=== PATIENT | female | born 1975 | race Caucasian/White ===

== ENCOUNTER 2017-09-23 12:00 | Emergency (ER) | payer OTHER ==
--- NOTE | 2017-09-23 12:17 | PDOC ---
History of Present Illness - General Chief Complaint: Constipation Stated Complaint: CONSTIPATION Time Seen by Provider: 09/23/17 12:17 - History of Present Illness Initial Comments: 09/23/17 13:03 Ms Pereira is a 42 yo F with a history of polycystic ovaries, history of facial trauma is status post multiple reconstructive surgeries who presents emergency department with abdominal pain and constipation. Patient states that the week of September 08 began to have an upper respiratory infection. She was seen at an urgent care, started on Azithromycin. She saw her primary care physician because she noted constipation When she completed her antibiotics, patient states she noted intermittent left lower quadrant pain. Patient states she had a change in her bowel movements Patient states she typically regular however she's noted that she's been constipated. She has been taking Senokot. She has also been taking a probiotic. Patient states she intermittently had left lower quadrant pain but it would resolve. Patient presents today because she states that her lower abdominal pain significantly worsened last night. She would describe it as sharp/80, pain is rated 7/10, no radiation. Patient states she has had no diarrhea. She's had 2 bowel movements in total over the last week. No vomiting. Patient states she may have had a low-grade fever-temperature 99.0 (patient states she is usually very cold). Her last meal was at 2:30 PM. She is tolerating foods, but having difficulty tolerating liquids. Past medical history: Polycystic ovaries PSH: multiple reconstructive surgeries Meds: denies ALL: Codeine --> hives Social: denies drugs or cigarettes GENERAL/CONSTITUTIONAL: No: fever, chills, weakness, loss of appetite. HEAD, EYES, EARS, NOSE AND THROAT: No: change in vision, ear pain, discharge, sore throat, throat swelling. CARDIOVASCULAR: No: chest pain, lightheadedness, palpitations, syncope RESPIRATORY: No: cough, shortness of breath, wheezing, hemoptysis, stridor. GASTROINTESTINAL: Yes: abdominal pain, constipation No: nausea, vomiting, diarrhea, GENITOURINARY: No: dysuria, hematuria, frequency, urgency, flank pain. MUSCULOSKELETAL: No: back pain, neck pain, joint pain, muscle swelling or pain SKIN AND BREASTS: No: lesions, pallor, rash or easy bruising. NEUROLOGIC: No: headache, vertigo, paresthesias, weakness ENDOCRINE: No: unexplained weight gain or loss HEMATOLOGIC/LYMPHATIC: No: anemia, easy bleeding, swelling nodes. GENERAL: The patient is in no acute distress. HEAD: Normal with no signs of trauma. EYES: PERRLA, EOMI, sclera anicteric, conjunctiva clear. ENT: Ears normal, nares patent, oropharynx clear without exudates. Moist mucous membranes. NECK: Normal range of motion, supple LUNGS: Breath sounds equal, clear to auscultation bilaterally. No wheezes, and no crackles. HEART:Regular rate and rhythm, normal S1 and S2 without murmur, rub or gallop. ABDOMEN: Soft, focal quadrant tenderness to palpation, no involuntary guarding, no rebound EXTREMITIES: Normal range of motion, no edema. No clubbing or cyanosis. No erythema, or tenderness. NEUROLOGICAL: Cranial nerves II through XII grossly intact. Normal speech. No focal neurological deficits. MUSCULOSKELETAL: Back non-tender to palpation SKIN: Warm, Dry, normal turgor, no rashes or lesions noted. Past History - Past Medical History Allergies/Adverse Reactions: Allergies Allergy/AdvReac Type Severity Reaction Status Date / Time coconut Allergy Intermediate Hives Verified 09/23/17 12:03 codeine Allergy Intermediate Hives Verified 09/23/17 12:03 hylan G-F 20 [From [employer]] Allergy Intermediate Swelling Verified 09/23/17 12: 03 Home Medications: Ambulatory Orders Moxifloxacin HCl [Vigamox 0.5% Eye Drops -] 1 drop OU TID PRN #1 bottle Norgestimate-Ethinyl Estradiol [Ortho Tri-Cyclen Lo Tablet] 1 each PO DAILY Polyethylene Glycol 3350 [Miralax (For Bowel Prep) -] 17 gm PO BID PRN #1 bottle 09/23/17 ED Treatment Course - LABORATORY CBC & Chemistry Diagram: 09/23/17 13:00 09/23/17 13:00 Medical Decision Making - Medical Decision Making 09/23/17 13:12 42-year-old female presented to emergency department with a complaint of left lower quadrant pain and constipation. No systemic signs of illness currently however patient had a prior low grade temperature. Patient's examination is concerning for possible: Diverticulitis, colitis, SBO, Ovarian cyst, Will do: Labs, CT IV pain medications IV fluids Will re assess Laboratory Tests 09/23/17 09/23/17 09/23/17 13:00 13:00 13:22 WBC 8.6 Hgb 14.6 Hct 41.7 Plt Count 335 Sodium 133 L Potassium 4.4 Chloride 102 Carbon Dioxide 25 BUN 15 Creatinine 0.9 Random Glucose 119 H Stool Occult Blood Negative Pt signed out to Dr Carolina pending CT *DC/Admit/Observation/Transfer Diagnosis at time of Disposition: Abdominal pain, Constipation - Discharge Dispostion Disposition: HOME Condition at time of disposition: Good - Prescriptions Prescriptions: Moxifloxacin HCl [Vigamox 0.5% Eye Drops -] 1 drop OU TID PRN #1 bottle PRN Reason: pink eye Polyethylene Glycol 3350 [Miralax (For Bowel Prep) -] 17 gm PO BID PRN #1 bottle PRN Reason: Constipation - Referrals Referrals: Maxi Almazan MD [Staff Physician] - 2 Days - Patient Instructions Printed Discharge Instructions: DI for Constipation Additional Instructions: You were evaluated today for constipation and lower abdominal discomfort. The CT scan shows diverticulosis, but no diverticulitis meaning there is no infection of the colon. You're advised to take MiraLAX once or twice a day to relieve the constipation. Eat a diet high in fiber. Take Tylenol if needed for abdominal pain. You are advised to call Dr. Maxi Almazan, voice writing reporter, on Monday to schedule a follow-up appointment for colonoscopy and reevaluation. You were also prescribed Vigamox eyedrops for pinkeye. Return to the emergency department for any severe or progressive symptoms. Otherwise follow-up with Dr. Almazan and your primary physician. - Post Discharge Activity
[2017-09-23 12:25] VITALS: BP 97/59; PULSE 94; TEMP 98; BMI 29.7
[2017-09-23] MEDS ORDERED: SODIUM CHLORIDE 1,000 ML IV STA (12:37)
[2017-09-23 13:18] LABS: BASO % 0.9 % (0-2.0); EOS % 0.8 % (0-4.5); HEMATOCRIT 41.7 % (32.4-45.2); HEMOGLOBIN 14.6 GM/dl (10.7-15.3); LYMPH % 16.1 % (8-40); MCH 32.7 pg (25.7-33.7); MEAN CELL VOLUME 93.5 fl (80-96); MEAN PLT VOLUME 7.6 fl (7.5-11.1); MONO % 4.6 % (3.8-10.2); NEUT % 77.6 % (42.8-82.8); PLATELET COUNT 335 K/MM3 (134-434); RBC 4.46 M/mm3 (3.60-5.2); RDW 11.5 % (11.6-15.6); WHITE BLOOD COUNT 8.6 K/mm3 (4.0-10.8)
[2017-09-23 13:35] LABS: ALBUMIN 3.9 g/dl (3.5-5.0); ALK PHOS 49 U/L (32-92); ANION GAP 6 (8-16); BILIRUBIN,TOTAL 0.8 mg/dl (0.2-1.0); BLOOD UREA NITROGEN 15 mg/dl (7-18); CALCIUM 8.9 mg/dl (8.4-10.2); CHLORIDE 102 mmol/L (98-107); CO2 25 mmol/L (22-28); CREATININE 0.9 mg/dl (0.6-1.3); GLUCOSE,RANDOM 119 mg/dl (74-106); POTASSIUM 4.4 mmol/L (3.5-5.1); SGOT/AST 20 U/L (10-42); SGPT/ALT 15 U/L (10-40); SODIUM 133 mmol/L (136-145); TOT PROT 6.8 g/dl (6.4-8.3)
[2017-09-23] MEDS ORDERED: HYDROmorphone HCL CARPU-JECT 1 MG/1 ML DISP.SYRIN IVPB ONE (14:01)
[2017-09-23] MEDS ORDERED: HYDROmorphone HCL CARPU-JECT 1 MG/1 ML DISP.SYRIN ONE (14:04)
--- NOTE | 2017-09-23 15:59 | PDOC ---
*Physical Exam - Vital Signs Last Vital Signs Temp Pulse Resp BP Pulse Ox 98.0 F 94 H 16 97/59 95 09/23/17 12:02 09/23/17 12:02 09/23/17 12:02 09/23/17 12:02 09/23/17 12:02 ED Treatment Course - LABORATORY CBC & Chemistry Diagram: 09/23/17 13:00 09/23/17 13:00 - ADDITIONAL ORDERS Additional order review: Laboratory Results 09/23/17 09/23/17 09/23/17 13:22 13:00 13:00 Sodium 133 L Potassium 4.4 Chloride 102 Carbon Dioxide 25 Anion Gap 6 L BUN 15 Creatinine 0.9 Creat Clearance w eGFR > 60 Random Glucose 119 H Calcium 8.9 Total Bilirubin 0.8 AST 20 ALT 15 Alkaline Phosphatase 49 Total Protein 6.8 Albumin 3.9 Serum , Qual Negative Stool Occult Blood Negative 09/23/17 13:00 RBC 4.46 MCV 93.5 MCHC 35.0 RDW 11.5 L MPV 7.6 Neutrophils % 77.6 Lymphocytes % 16.1 Monocytes % 4.6 Eosinophils % 0.8 Basophils % 0.9 - Medications Given in the ED: ED Medications Discontinued Medications Generic Name Dose Route Start Last Admin Trade Name Freq PRN Reason Stop Dose Admin Hydromorphone HCl 0.5 mg 09/23/17 14:01 09/23/17 14:10 Dilaudid Injection - IVPB 09/23/17 14:02 0.5 mg NOW ONE Administration Sodium Chloride 1,000 mls @ 1,000 mls/hr 09/23/17 12:37 09/23/17 13:10 Normal Saline - IV 09/23/17 13:36 1,000 mls/hr ASDIR STA Administration Medical Decision Making - Medical Decision Making 09/23/17 15:52 Patient presented today for decreased stool output and intermittent constipation with some lower abdominal discomfort. Workup has been completed. Her white blood cell count is 8. There is no fever. She has mild discomfort on palpation of her lower abdomen. There is no guarding or rebound tenderness. CT scan of the abdomen and pelvis shows diverticulosis, but no signs of diverticulitis. The CT scan was performed with IV contrast. Impression: Constipation, workup unremarkable. Patient was prescribed MiraLAX for her constipation. She also has mild pinkeye and was given Ocuflox prescription. Patient will be referred to GI for colonoscopy. She stated she understands the importance of GI follow-up and colonoscopy to complete her workup and she assures me that she will follow through. Laboratory Results - last 24 hr 09/23/17 09/23/17 09/23/17 13:00 13:00 13:00 WBC 8.6 RBC 4.46 Hgb 14.6 Hct 41.7 MCV 93.5 MCH 32.7 MCHC 35.0 RDW 11.5 L Plt Count 335 MPV 7.6 Neutrophils % 77.6 Lymphocytes % 16.1 Monocytes % 4.6 Eosinophils % 0.8 Basophils % 0.9 Sodium 133 L Potassium 4.4 Chloride 102 Carbon Dioxide 25 Anion Gap 6 L BUN 15 Creatinine 0.9 Creat Clearance w eGFR > 60 Random Glucose 119 H Calcium 8.9 Total Bilirubin 0.8 AST 20 ALT 15 Alkaline Phosphatase 49 Total Protein 6.8 Albumin 3.9 Serum , Qual Negative Stool Occult Blood 09/23/17 13:22 WBC RBC Hgb Hct MCV MCH MCHC RDW Plt Count MPV Neutrophils % Lymphocytes % Monocytes % Eosinophils % Basophils % Sodium Potassium Chloride Carbon Dioxide Anion Gap BUN Creatinine Creat Clearance w eGFR Random Glucose Calcium Total Bilirubin AST ALT Alkaline Phosphatase Total Protein Albumin Serum , Qual Stool Occult Blood Negative *DC/Admit/Observation/Transfer Diagnosis at time of Disposition: Abdominal pain Qualifiers: Abdominal location: left lower quadrant Qualified Code(s): R10.32 - Left lower quadrant pain Constipation Qualifiers: Constipation type: unspecified constipation type Qualified Code(s): K59.00 - Constipation, unspecified - Discharge Dispostion Disposition: HOME Condition at time of disposition: Good Admit: No - Prescriptions Prescriptions: Moxifloxacin HCl [Vigamox 0.5% Eye Drops -] 1 drop OU TID PRN #1 bottle PRN Reason: pink eye Polyethylene Glycol 3350 [Miralax (For Bowel Prep) -] 17 gm PO BID PRN #1 bottle PRN Reason: Constipation - Referrals Referrals: Maxi Almazan MD [Staff Physician] - 2 Days - Patient Instructions Printed Discharge Instructions: DI for Constipation Additional Instructions: You were evaluated today for constipation and lower abdominal discomfort. The CT scan shows diverticulosis, but no diverticulitis meaning there is no infection of the colon. You're advised to take MiraLAX once or twice a day to relieve the constipation. Eat a diet high in fiber. Take Tylenol if needed for abdominal pain. You are advised to call Dr. Maxi Almazan, dip painter, on Monday to schedule a follow-up appointment for colonoscopy and reevaluation. You were also prescribed Vigamox eyedrops for pinkeye. Return to the emergency department for any severe or progressive symptoms. Otherwise follow-up with Dr. Almazan and your primary physician. - Post Discharge Activity
== END 2017-09-23 16:13 | disposition home or self-care (01) ==
LOC: FER 12:00
PROC: 3E033NZ Introduction of Analgesics, Hypnotics, Sedatives into Peripheral Vein, Percutaneous Approach (ICD-10-PCS; principal; 2017-09-23)
PROC: 3E0337Z Introduction of Electrolytic and Water Balance Substance into Peripheral Vein, Percutaneous Approach (ICD-10-PCS; 2017-09-23)
DX: K59.00 Constipation, unspecified (principal); R10.9 Unspecified abdominal pain
CPT/HCPCS: 36415; 74177-TC; 80053; 82272; 84703; 85025; 87040; 99283-25

== ENCOUNTER 2017-10-20 08:21 | Day surgery (SDC) | payer OTHER ==
[2017-10-20] MEDS ORDERED: LIDOCAINE HCL 2% (20ML MULTI-DOSE VIAL) NR ONE (08:40)
[2017-10-20] MEDS ORDERED: PROPOFOL 20 ML ONE ×4 (08:40→10:39)
[2017-10-20 09:24] VITALS: BMI 28.7
--- NOTE | 2017-10-20 10:53 | PROC ---
Endoscopy Procedure Endoscopy procedure completed. Please see scanned procedure report.
[2017-10-20 12:12] VITALS: BP 111/73; PULSE 60; TEMP 98.2
--- NOTE | 2017-10-23 10:48 | PATH ---
Surgical Pathology Report Patient Name: MARY KATE [facility]. Rec. #: [id number] /Age/Gender: 1975 (Age: 42) / F Account: [id number] Location: [facility]-ENDOSCOPY Taken: 10/20/2017 Received: 10/20/2017 Reported: 10/23/2017 Physicians: Maxi Almazan M.D. Specimen(s) Received A: BX TERMINAL ILEUM B: BX ASCENDING COLON C: BX DESCENDING COLON Clinical History Preoperative diagnosis: Screening Postoperative diagnosis: Tortuous normal colon?? Final Diagnosis A. TERMINAL ILEUM, BIOPSY: SMALL INTESTINAL MUCOSA WITH FOLLICULAR HYPERPLASIA OF MUCOSA ASSOCIATED LYMPHOID TISSUE. NO ACTIVE COLITIS, ARCHITECTURAL DISTORTION, GRANULOMATA, OR DYSPLASIA IDENTIFIED. NO MICROSCOPIC COLITIS IDENTIFIED (NO LYMPHOCYTIC OR COLLAGENOUS COLITIS IDENTIFIED). B. COLON, ASCENDING, BIOPSY: COLONIC MUCOSA WITH NO PATHOLOGIC CHANGES. NO ACTIVE COLITIS, ARCHITECTURAL DISTORTION, GRANULOMATA, OR DYSPLASIA IDENTIFIED. NO MICROSCOPIC COLITIS IDENTIFIED (NO LYMPHOCYTIC OR COLLAGENOUS COLITIS IDENTIFIED). C. COLON, DESCENDING, BIOPSY: COLONIC MUCOSA WITH NO PATHOLOGIC CHANGES. NO ACTIVE COLITIS, ARCHITECTURAL DISTORTION, GRANULOMATA, OR DYSPLASIA IDENTIFIED. NO MICROSCOPIC COLITIS IDENTIFIED (NO LYMPHOCYTIC OR COLLAGENOUS COLITIS IDENTIFIED). Comment: The findings in Specimen A may indicate some form of antigenic stimulation to the GI tract. Electronically Signed Warren Cobos M.D. Gross Description A. Received in formalin, labeled "biopsy terminal ileum" are 2 landrum, irregular portions of soft tissue measuring 0.3 and 0.4 cm. in greatest dimension. The specimens are submitted in toto in one cassette. B. Received in formalin, labeled "biopsy ascending colon" are 2 landrum, irregular portions of soft tissue averaging 0.3 cm. in greatest dimension. The specimens are submitted in toto in one cassette. C. Received in formalin, labeled "biopsy descending colon" are 2 landrum, irregular portions of soft tissue measuring 0.3 and 0.4 cm. in greatest dimension. The specimens are submitted in toto in one cassette. 10/20/201710/20/2017
== END 2017-10-20 12:05 | disposition home or self-care (01) ==
LOC: JASU-ENDO 08:21
PROVIDERS: ATTEND Internal Medicine Gastroenterology
PROC: 0DJD8ZZ Inspection of Lower Intestinal Tract, Via Natural or Artificial Opening Endoscopic (ICD-10-PCS; principal; 2017-10-20 09:00)
DX: R19.4 Change in bowel habit (principal); K63.89 Other specified diseases of intestine
CPT/HCPCS: 36415; 84703; 88305-TC

== ENCOUNTER 2017-11-04 17:09 | Emergency (ER) | payer OTHER ==
[2017-11-04 17:35] VITALS: BP 116/76; PULSE 99; TEMP 101.9; BMI 28.6
[2017-11-04] MEDS ORDERED: ACETAMINOPHEN 325 MG TABLET (FP) ONE (17:48)
[2017-11-04] MEDS ORDERED: ACETAMINOPHEN 325 MG TABLET (FP) PO ONE ×2 (17:52)
--- NOTE | 2017-11-04 17:52 | PDOC ---
History of Present Illness - General History Source: Patient, Family Exam Limitations: No Limitations - History of Present Illness Initial Comments: 11/04/17 18:16 The patient is a 42 year old female, accompanied by mother, with a significant past medical history of polycystic ovaries, history of facial trauma s/p multiple reconstructive surgeries, who presents to the emergency department with , measured fever, non productive cough, generalized body aches and fatigue for approx. one week. The patient states that last Monday she began to feel more fatigued than usual and noticed she had a sore throat. The patient states over the past week she has had measured fevers of 101.7 F, chills, body aches, non productive cough and mild congestion. The patient states she has been taking Tylenol for the fevers with minimal relief. The patient states she last took Motrin this afternoon approx. 6 hours ago. She denies recent headache or dizziness. She denies recent nausea, vomit, diarrhea or constipation. She denies recent dysuria, frequency, urgency or hematuria. She denies recent chest pain or shortness of breath. Allergies: coconut, codeine, hylan G-F 20 Past surgical history: multiple reconstructive surgeries Primary Care Physician: Dr. Karson Barth <Tristan Bernal - Last Filed: 11/04/17 18:16> <Patricia Garcia - Last Filed: 11/04/17 18:23> - General Chief Complaint: Cold Symptoms Stated Complaint: FLU Time Seen by Provider: 11/04/17 17:52 Past History <Tristan Bernal - Last Filed: 11/04/17 18:16> - Past Medical History COPD: No GI Disorders: Yes (DIVERTICULOSIS) Disorders: Yes (POLYCYSTIC OVARIAN DISEASE) Other medical history: PCOS,ARTHRITIS,MIGRAINE - Surgical History Abdominal Surgery: (colonoscopy on 10/20/17) Orthopedic Surgery: Yes (LEFT WRIST SURGERY,BILATERAL KNEE SURGERY) - Suicide/Smoking/Psychosocial Hx Smoking History: Never smoked Hx Alcohol Use: No Drug/Substance Use Hx: No Substance Use Type: None Hx Substance Use Treatment: No <Patricia Garcia - Last Filed: 11/04/17 18:23> - Past Medical History Allergies/Adverse Reactions: Allergies Allergy/AdvReac Type Severity Reaction Status Date / Time coconut Allergy Intermediate Hives Verified 11/04/17 17:30 codeine Allergy Intermediate Hives Verified 11/04/17 17:30 hylan G-F 20 [From [employer]] Allergy Intermediate Swelling Verified 11/04/17 17: 30 Home Medications: Ambulatory Orders Norgestimate-Ethinyl Estradiol [Ortho Tri-Cyclen Lo Tablet] 1 each PO DAILY Ondansetron [Zofran Odt -] 4 mg SL TID PRN #21 od.tablet 11/04/17 Oseltamivir Phosphate [Tamiflu -] 75 mg PO BID #10 capsule 11/04/17 Review of Systems - Review of Systems Comments:: 11/04/17 18:17 GENERAL/CONSTITUTIONAL: +Fever. +Chills. +Fatigue. No weakness. HEAD, EYES, EARS, NOSE AND THROAT: +Sore throat. +Congestion. No change in vision. No ear pain or discharge. CARDIOVASCULAR: No chest pain or shortness of breath. RESPIRATORY: +Non productive cough. No wheezing, or hemoptysis. GASTROINTESTINAL: No nausea, vomiting, diarrhea or constipation. GENITOURINARY: No dysuria, frequency, or change in urination. MUSCULOSKELETAL: +Generalized body aches. No neck or back pain. SKIN: No rash NEUROLOGIC: No headache, vertigo, loss of consciousness, or change in strength/ sensation. ENDOCRINE: No increased thirst. No abnormal weight change. HEMATOLOGIC/LYMPHATIC: No anemia, easy bleeding, or history of blood clots. ALLERGIC/IMMUNOLOGIC: No hives or skin allergy. <Tristan Bernal - Last Filed: 11/04/17 18:16> *Physical Exam - Vital Signs Last Vital Signs Temp Pulse Resp BP Pulse Ox 101.9 F H 99 H 18 116/76 97 11/04/17 17:11 11/04/17 17:11 11/04/17 17:11 11/04/17 17:11 11/04/17 17:11 <Tristan Bernal - Last Filed: 11/04/17 18:16> - Vital Signs Last Vital Signs Temp Pulse Resp BP Pulse Ox 101.9 F H 99 H 18 116/76 97 11/04/17 17:11 11/04/17 17:11 11/04/17 17:11 11/04/17 17:11 11/04/17 17:11 - Physical Exam Comments: GENERAL: Awake, alert, and fully oriented, in no acute distress. +Tactile fever. HEAD: No signs of trauma EYES: PERRLA, EOMI, sclera anicteric, conjunctiva clear ENT: Auricles normal inspection, hearing grossly normal, nares patent, oropharynx clear without exudates. Moist mucosa. +Narrow EACs (chronic per patient), TMs partially visualized B/L, nonerythematous. +Purulent nasal drainage. NECK: Normal ROM, supple, no lymphadenopathy, JVD, or masses LUNGS: Breath sounds equal, clear to auscultation bilaterally. No wheezes, and no crackles HEART: Regular rate and rhythm, normal S1 and S2, no murmurs, rubs or gallops ABDOMEN: Soft, nontender, normoactive bowel sounds. No guarding, no rebound. No masses EXTREMITIES: Normal range of motion, no edema. No clubbing or cyanosis. No cords, erythema, or tenderness NEUROLOGICAL: Cranial nerves II through XII grossly intact. Normal speech, normal gait SKIN: Warm, Dry, normal turgor, no rashes or lesions noted. <Patricia Garcia - Last Filed: 11/04/17 18:23> ED Treatment Course - ADDITIONAL ORDERS Additional order review: Laboratory Results 11/04/17 17:40 Urine HCG, Qual Negative - Medications Given in the ED: ED Medications Discontinued Medications Generic Name Dose Route Start Last Admin Trade Name Parthq PRN Reason Stop Dose Admin Acetaminophen 975 mg 11/04/17 17:52 11/04/17 17:54 Tylenol - PO 11/04/17 17:53 Not Given ONCE ONE Acetaminophen 975 mg 11/04/17 17:52 11/04/17 17:53 Tylenol - PO 11/04/17 17:53 975 mg NOW ONE Administration <Tristan Bernal - Last Filed: 11/04/17 18:16> Medical Decision Making - Medical Decision Making 11/04/17 18:22 Pt counseled to take motrin or tylenol for fever, may alternate every 3 hours if fever is returning too quickly. Tamiflu prescribed, zofran in case she develops nausea from the tamiflu. Encouraged her to drink plenty of fluids. 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 Also counseled family to wear masks to prevent spread. <Patricia Garcia - Last Filed: 11/04/17 18:23> *DC/Admit/Observation/Transfer - Attestations Scribe Attestion: 11/04/17 18:17 Documentation prepared by Tristan Bernal, acting as biomedical engineering supervisor for Patricia Garcia MD. <Tristan Bernal - Last Filed: 11/04/17 18:16> - Discharge Dispostion Admit: No <Patricia Garcia - Last Filed: 11/04/17 18:23> Diagnosis at time of Disposition: Influenza - Discharge Dispostion Disposition: HOME Condition at time of disposition: Stable - Prescriptions Prescriptions: Ondansetron [Zofran Odt -] 4 mg SL TID PRN #21 od.tablet PRN Reason: Nausea And/Or Vomiting Oseltamivir Phosphate [Tamiflu -] 75 mg PO BID #10 capsule - Referrals Referrals: Karson Barth MD [Primary Care Provider] - - Patient Instructions Printed Discharge Instructions: DI for Influenza -- Adult Additional Instructions: If you take Nyquil, just be aware of how much tylenol you are taking. You can take a maximum of 1000mg of tylenol every 6 hours (extra strength tylenol is 500 mg each tab, regular strength is 325 mg each tab), so when you take nyquil, you need to decrease tylenol accordingly. - Post Discharge Activity Forms/Work/School Notes: Back to Work
== END 2017-11-04 18:23 | disposition home or self-care (01) ==
LOC: FER 17:09
DX: J11.1 Influenza due to unidentified influenza virus with other respiratory manifestations (principal); E28.2 Polycystic ovarian syndrome
CPT/HCPCS: 84703; 99282-25

== ENCOUNTER 2017-12-31 17:33 | Emergency (ER) | payer OTHER ==
--- NOTE | 2017-12-31 17:46 | PDOC ---
History of Present Illness - General History Source: Patient Exam Limitations: No Limitations - History of Present Illness Initial Comments: 12/31/17 17:56 The patient is a 42 year old female with past medical history of PCOS and bilateral knee surgery who presents to the ED with worsening right foot pain and swelling. The patient states the pain began a few months ago when she fell at [employer] and injured the dorsum of her foot. The pain became worse two days ago when someone stepped on that foot and since then she has been experiencing throbbing pain and swelling to her right foot. The patient is able to bare weight but reports difficulty ambulating. She denies any associated numbness or tingling. Denies any other injury. Denies any fevers/chills. <Margaret Salazar - Last Filed: 12/31/17 17:56> <Dariana Altamirano - Last Filed: 12/31/17 18:27> - General Chief Complaint: Pain Stated Complaint: PAIN RIGHT FOOT Time Seen by Provider: 12/31/17 17:45 Past History <Margaret Salazar - Last Filed: 12/31/17 17:56> - Past Medical History COPD: No GI Disorders: Yes (DIVERTICULOSIS) Disorders: Yes (POLYCYSTIC OVARIAN DISEASE) - Surgical History Abdominal Surgery: (colonoscopy on 10/20/17) Orthopedic Surgery: Yes (LEFT WRIST SURGERY,BILATERAL KNEE SURGERY) - Suicide/Smoking/Psychosocial Hx Smoking History: Never smoked Hx Alcohol Use: No Drug/Substance Use Hx: No Substance Use Type: None Hx Substance Use Treatment: No <Dariana Altamirano - Last Filed: 12/31/17 18:27> - Past Medical History Allergies/Adverse Reactions: Allergies Allergy/AdvReac Type Severity Reaction Status Date / Time coconut Allergy Intermediate Hives Verified 11/04/17 17:30 codeine Allergy Intermediate Hives Verified 11/04/17 17:30 hylan G-F 20 [From Synvisc] Allergy Intermediate Swelling Verified 11/04/17 17: 30 Home Medications: Ambulatory Orders NK [No Known Home Medication] 12/31/17 Review of Systems - Review of Systems Able to Perform ROS?: Yes Comments:: 12/31/17 17:56 GENERAL/CONSTITUTIONAL: No fever or chills. No weakness. HEAD, EYES, EARS, NOSE AND THROAT: No change in vision. No ear pain or discharge. No sore throat. CARDIOVASCULAR: No chest pain or shortness of breath. RESPIRATORY: No cough, wheezing, or hemoptysis. GASTROINTESTINAL: No nausea, vomiting, diarrhea or constipation. GENITOURINARY: No dysuria, frequency, or change in urination. MUSCULOSKELETAL: (+) right foot pain/swelling. No neck or back pain. SKIN: No rash NEUROLOGIC: No headache, vertigo, loss of consciousness, or change in strength/ sensation. ENDOCRINE: No increased thirst. No abnormal weight change. HEMATOLOGIC/LYMPHATIC: No anemia, easy bleeding, or history of blood clots. ALLERGIC/IMMUNOLOGIC: No hives or skin allergy. All Other Systems: Reviewed and Negative <Margaret Salazar - Last Filed: 12/31/17 17:56> *Physical Exam - Vital Signs Last Vital Signs Temp Pulse Resp BP Pulse Ox 98.3 F 90 16 136/77 100 12/31/17 17:35 12/31/17 17:35 12/31/17 17:35 12/31/17 17:35 12/31/17 17:35 - Physical Exam Comments: 12/31/17 17:57 GENERAL: Awake, alert, and fully oriented, in no acute distress HEAD: No signs of trauma EYES: PERRLA, EOMI, sclera anicteric, conjunctiva clear ENT: Auricles normal inspection, hearing grossly normal, nares patent, oropharynx clear without exudates. Moist mucosa NECK: Normal ROM, supple, no lymphadenopathy, JVD, or masses LUNGS: Breath sounds equal, clear to auscultation bilaterally. No wheezes, and no crackles HEART: Regular rate and rhythm, normal S1 and S2, no murmurs, rubs or gallops ABDOMEN: Soft, nontender, normoactive bowel sounds. No guarding, no rebound. No masses EXTREMITIES: (+) pain and mild swelling to the dorsum of the right foot. No ecchymosis, neurovascularly intact, full ROM. NEUROLOGICAL: Cranial nerves II through XII grossly intact. Normal speech, normal gait SKIN: Warm, Dry, normal turgor, no rashes or lesions noted. <Margaret Salazar - Last Filed: 12/31/17 17:56> Medical Decision Making - Medical Decision Making 12/31/17 18:23 pt presents to the ED complaining of pain to the dorsum of her foot after stepped on. Patient has had several episodes of foot swelling after an injury three weeks ago. Xrays read by me are negative for fracture. Will discharge home with antoni wrap and instructions to use motrin for pain and referal to podiatry. <Dariana Altamirano - Last Filed: 12/31/17 18:27> *DC/Admit/Observation/Transfer - Attestations Scribe Attestion: 12/31/17 17:58 Documentation prepared by Margaret Salazar, acting as medical csr for Dariana Altamirano MD. <Margaret Salazar - Last Filed: 12/31/17 17:56> - Discharge Dispostion Decision to Admit order: No <Dariana Altamirano - Last Filed: 12/31/17 18:27> Diagnosis at time of Disposition: Right foot strain Qualifiers: Encounter type: initial encounter Qualified Code(s): S96.911A - Strain of unspecified muscle and tendon at ankle and foot level, right foot, initial encounter - Discharge Dispostion Disposition: HOME Condition at time of disposition: Good - Referrals Referrals: Ayush Downs MD [Staff Physician] - - Patient Instructions Printed Discharge Instructions: DI for Foot Sprain Additional Instructions: return to the ED for severe pain or swelling, cold numb blue swollen foot. Try to minimize the time that you spend on your feet for the next week. Keep the foot elevated and use ice to help with the swelling. Call podiatry for follow up next week.
[2017-12-31 17:49] VITALS: BP 136/77; PULSE 90; TEMP 98.3; BMI 27.6
--- NOTE | 2018-01-01 07:51 | PDOC ---
Patient Follow-up (Call Back) - Post ED Follow - Up Condition at time of discharge: Good Disposition at time of original discharge: HOME - Disposition Additional Instructions/Notes: Received a call from radiologist that pt may have distal fibular avulsion fracture. Called patient, states she is doing well, has been wearing the antoni bandage with some high tennis shoes which has been helping. Informed her of the possible fracture, she states she is having pain more so over the dorsum of the foot, not as much by her outer ankle bone. 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 Recommended the ED for rpt XR any time if she has any difficulty making follow up appt, or if pain/swelling persist or get worse.
== END 2017-12-31 18:31 | disposition home or self-care (01) ==
LOC: FER 17:33
DX: S96.911A Strain of unspecified muscle and tendon at ankle and foot level, right foot, initial encounter (principal); X58.XXXA Exposure to other specified factors, initial encounter; Y93.89 Activity, other specified; Y92.9 Unspecified place or not applicable
CPT/HCPCS: 73610-TC-RT-FY; 73630-TC-RT-FY; 99282-25

== ENCOUNTER 2018-12-16 05:22 | Emergency (ER) | payer OTHER ==
[2018-12-16 05:26] VITALS: BP 112/73; PULSE 93; TEMP 98.3; BMI 29.8
[2018-12-16] MEDS ORDERED: ALBUTEROL SO4 2.5/IPRATROPIUM 0.5 INH SOL 3 ML VIAL.NEB. NEB ONE ×2 (05:39→05:40)
[2018-12-16] MEDS ORDERED: predniSONE 20 MG TABLET (UD) PO ONE (05:39)
--- NOTE | 2018-12-16 05:39 | PDOC ---
History of Present Illness - General Chief Complaint: Sore Throat Stated Complaint: sore throat,cough Time Seen by Provider: 12/16/18 05:24 History Source: Patient Exam Limitations: No Limitations - History of Present Illness Initial Comments: 12/16/18 05:42 This is a 43-year-old female who comes in complaining of cough and congestion and shortness of breath. Patient has history of seasonal ALLERGIES and left her inhaler at work [employer]. So has not had it times almost 2 days. Patient comes in complaining of cough, sore throat and denies any history of headache, fevers, chest pain. Patient cough is nonproductive. Allergies: as per nursing notes Past Medical History: none Social history: Lives with family. No smoking. No alcohol. No illicit drugs. Surgical history: None General: No fevers or chills, no weakness, no weight loss HEENT: No change in vision. + sore throat,. No ear pain CardioVascular: no chest discomfort. No shortness of breath Respiratory:+ cough, or wheezing. Gastrointestinal: no nausea, vomiting, diarrhea or constipation, No rectal bleeding Genitourinary: No dysuria, hematuria, or frequency Musculoskeletal: No joint or muscle pain or swelling Neurologic: No headache, vertigo, dizziness or loss of consciousness Psychiatric: nor depression Skin: No rashes or easy bruising Endocrine: no increased thirst or abnormal weight change Allergic: no skin or latex allergy All other systems reviewed and normal Exam: General: Well-nourished well-developed individual, no acute distress HEENT: Throat: Normal, tonsils normal, moderate amount of erythema posterior oropharynx, tonsils are otherwise normal and there is no exudate. Neck: Supple, no meningeal signs, no lymphadenopathy Eyes::Pupils equal reactive and round, extraocular motion intact Chest: Nontender to palpation Cardiac: S1-S2 normal, regular rate and rhythm, no murmurs rubs or gallops Respiratory: Lungs few x-ray wheezes throughout all lung taylor otherwise clear Abdomen: Soft, nondistended, normal bowel sounds, there is no tenderness on palpation diffusely Extremities: Warm, dry, no cyanosis, clubbing, or edema Skin: No rashes Neuro: Alert and oriented x3, CN II - XII intact, nonfocal exam with normal strength, normal sensation, normal reflexes, normal gait, Psych: Normal mood and affect Assessment and plan: This is a 43-year-old female with seasonal ALLERGIES who left her inhaler at work. Patient given DuoNeb in the emergency room as well as started on some prednisone. Patient sent home with prescription for prednisone and another inhaler. Past History - Past Medical History Allergies/Adverse Reactions: Allergies Allergy/AdvReac Type Severity Reaction Status Date / Time coconut Allergy Intermediate Hives Verified 12/16/18 05:23 codeine Allergy Intermediate Hives Verified 12/16/18 05:23 hylan G-F 20 [From [employer]iquisys] Allergy Intermediate Swelling Verified 12/16/18 05: 23 Home Medications: Ambulatory Orders Albuterol Sulfate Inhaler - [Ventolin HFA Inhaler -] 1 - 2 inh PO Q4H #1 inhaler 12/16/18 Prednisone [Deltasone] 40 mg PO DAILY #8 tablet 12/16/18 COPD: No GI Disorders: Yes (DIVERTICULOSIS) Disorders: Yes (POLYCYSTIC OVARIAN DISEASE) - Surgical History Abdominal Surgery: (colonoscopy on 10/20/17) Orthopedic Surgery: Yes (LEFT WRIST SURGERY,BILATERAL KNEE SURGERY) - Suicide/Smoking/Psychosocial Hx Smoking History: Current some day smoker Have you smoked in the past 12 months: Yes Information on smoking cessation initiated: Yes Hx Alcohol Use: Yes (ocasional) Drug/Substance Use Hx: No Substance Use Type: None Hx Substance Use Treatment: No *Physical Exam - Vital Signs Last Vital Signs Temp Pulse Resp BP Pulse Ox 98.3 F 93 H 16 112/73 97 12/16/18 05:23 12/16/18 05:23 12/16/18 05:23 12/16/18 05:23 12/16/18 05:23 *DC/Admit/Observation/Transfer Diagnosis at time of Disposition: Seasonal allergies - Discharge Dispostion Disposition: HOME Condition at time of disposition: Stable Decision to Admit order: No - Prescriptions Prescriptions: Albuterol Sulfate Inhaler - [Ventolin HFA Inhaler -] 1 - 2 inh PO Q4H #1 inhaler Prednisone [Deltasone] 40 mg PO DAILY #8 tablet - Referrals - Patient Instructions Additional Instructions: Take prednisone 40 mg a day for the next 4 days. I sent a prescription to your pharmacy for the prednisone. Use your inhaler 2 puffs as often as every 4-6 hours if needed. Return to the emergency department immediately with ANY new, persistent or worsening symptoms. Continue any medications as previously prescribed by your physician. You should follow up with your primary doctor as soon as possible regarding today's emergency department visit. . Please make sure your doctor reviews the results of your emergency evaluation. Thank you for coming to the Emergency Department today for your care. It was a pleasure to see you today. Please note that your evaluation is INCOMPLETE until you follow-up with your doctor. - Post Discharge Activity
[2018-12-16] MEDS ORDERED: predniSONE 20 MG TABLET (UD) ONE (05:40)
== END 2018-12-16 06:09 | disposition home or self-care (01) ==
LOC: FER 05:22
PROC: 3E0F7GC Introduction of Other Therapeutic Substance into Respiratory Tract, Via Natural or Artificial Opening (ICD-10-PCS; principal; 2018-12-16)
DX: J30.2 Other seasonal allergic rhinitis (principal); F17.210 Nicotine dependence, cigarettes, uncomplicated; K57.90 Diverticulosis of intestine, part unspecified, without perforation or abscess without bleeding; E28.2 Polycystic ovarian syndrome
CPT/HCPCS: 99282-25

== ENCOUNTER 2020-03-24 10:44 | Emergency (ER) | payer BC, OTHER ==
[2020-03-24 11:00] VITALS: BP 124/86; PULSE 102; TEMP 98.1; BMI 29.8
[2020-03-24] MEDS ORDERED: KETOROLAC TROMETHAMINE 30 MG/1 ML VIAL IM ONE (11:12)
[2020-03-24] MEDS ORDERED: KETOROLAC TROMETHAMINE 30 MG/1 ML VIAL ONE (11:14)
--- NOTE | 2020-03-24 11:19 | PDOC ---
History of Present Illness - General Chief Complaint: Pain, Acute Stated Complaint: RIGHT FOOT PAIN Time Seen by Provider: 03/24/20 10:47 History Source: Patient Exam Limitations: No Limitations - History of Present Illness Initial Comments: 03/24/20 11:14 45y F hx of PCOS, arthritis, presents with atraumatic R foot pain. The Patient endorses chronic right foot pain that is usually tolerable however this morning she woke up with severe right foot pain, noting it is very difficult for her to ambulate due to the pain. She states that she had not done anything out of the ordinary the last couple of days she did go on vacation to [place] last week and was on her feet a lot however her pain was manageable until yesterday. The patient denies any trauma, new exercises, focal numbness, tingling, weakness. Patient notes that the pain is worse on the dorsum of her right foot and there is no radiation of the pain to the ankle or legs. She has seen orthopedics in the past and had x-rays and was diagnosed with arthritis she has had cortisone shots in the past with relief. Patient denies any fever, chills. Patient takes diclofenac orally and topically for her arthritis pains however has not taken anything today. Past History - Medical History Allergies/Adverse Reactions: Allergies Allergy/AdvReac Type Severity Reaction Status Date / Time coconut Allergy Intermediate Hives Verified 03/24/20 10:46 codeine Allergy Intermediate Hives Verified 03/24/20 10:46 hylan G-F 20 [From [employer]] Allergy Intermediate Swelling Verified 03/24/20 10:46 Home Medications: Ambulatory Orders Diclofenac Sodium 1 applic TP ASDIR PRN 03/24/20 Sertraline HCl [Zoloft] 100 mg PO DAILY PRN 03/24/20 COPD: No GI Disorders: Yes (DIVERTICULOSIS) Disorders: Yes (POLYCYSTIC OVARIAN DISEASE) Other medical history: DEGENERATIVE ARTHRITIS L4-L5 - Surgical History Abdominal Surgery: (colonoscopy on 10/20/17) Orthopedic Surgery: Yes (LEFT WRIST SURGERY,BILATERAL KNEE SURGERY) - Reproductive History Is Patient Now?: No - Psycho-Social/Smoking History Smoking History: Never smoked Have you smoked in the past 12 months: Yes 'Breaking Loose' booklet given: 12/16/18 - Substance Abuse Hx (Audit-C & DAST Scrn) How often the patient has a drink containing alcohol: Monthly or less How often the patient has six or more drinks on one occasion: Never Score: In Men: 4 or > Positive; In Women: 3 or > Positive: 1 Screen Result (Pos requires Nsg. Audit-10AR): Negative In the last yr the pt used illegal drug/Rx for NonMed reason: No Score: Yes response is considered Positive: 0 Screen Result (Positive result requires Nsg. DAST-10): Negative Review of Systems - Review of Systems Able to Perform ROS?: Yes Comments:: 03/24/20 11:16 Constitutional - no reported Fever, Chills, Musculskelatal - +R foot pain no reported back pain, joint swelling skin - no reported bruising, erythema, rash neurological: no reported numbness, focal weakness, tingling, ataxia, *Physical Exam - Vital Signs Last Vital Signs Temp Pulse Resp BP Pulse Ox 98.1 F 102 H 16 124/86 98 03/24/20 10:45 03/24/20 10:45 03/24/20 10:45 03/24/20 10:45 03/24/20 10:45 - Physical Exam 03/24/20 11:17 GENERAL: The patient is awake, alert, and fully oriented, Nontoxic - in no acute distress. EXTREMITIES: Dorsiflexion, plantarflexion is 5 out of 5 and symmetric, sensation intact throughout, Mild tenderness palpation on the dorsum of the right foot, Mild pain along the extensor tendons with dorsiflexion, No significant edema, fluctuance, erythema, induration, no skin breakdown, no tenderness along the mal leoli. ED Treatment Course - RADIOLOGY Radiology Studies Ordered: Category Date Time Status FOOT-RIGHT [RAD] Stat Radiology 03/24/20 11:12 Ordered Medical Decision Making - Medical Decision Making 03/24/20 11:19 Suspect possible Arthritis pain, will give Toradol. Will obtain x-rays rule out stress fractures 03/24/20 12:14 xray neg for acute process will have pt fu with ortho for further mangement pt ambulatory return precautions were discussed I discussed the physical exam findings, ancillary test results and final diagnoses with the patient. I answered all of the patient's questions. The patient was satisfied with the care received and felt comfortable with the discharge plan and treatment plan. The patient will call their primary care physician within 24 hours to arrange follow-up and will return to the Emergency Department with any new, persistent or worsening symptoms. Discharge - Discharge Information Problems reviewed: Yes Clinical Impression/Diagnosis: Foot pain, right Condition: Improved Disposition: HOME - Admission No - Follow up/Referral Referrals: Tristan Tobar MD [Primary Care Provider] - - Patient Discharge Instructions Patient Printed Discharge Instructions: DI for Foot Pain Additional Instructions: Return to the emergency department immediately with ANY new, persistent or worsening symptoms. Take ibuprofen or Tylenol as needed for your pain. Rest, keep your legs elevated. You MUST call and follow up with your orthopedist within 3-4 days for further evaluation of your symptoms. Results were discussed with you. Please make sure your doctor reviews the results of your emergency evaluation. Your Emergency Department visit is not complete without a follow up with your doctor. - Post Discharge Activity
== END 2020-03-24 12:20 | disposition home or self-care (01) ==
LOC: FER 10:44
PROC: 3E0234Z Introduction of Serum, Toxoid and Vaccine into Muscle, Percutaneous Approach (ICD-10-PCS; principal; 2020-03-24)
DX: M79.671 Pain in right foot (principal)
CPT/HCPCS: 73630-TC-RT-FY; 99284-25

== ENCOUNTER 2023-05-27 08:40 | Emergency (ER) | payer BC ==
[2023-05-27] MEDS ORDERED: IBUPROFEN 600 MG TABLET (FP) PO ONE ×2 (08:46→08:52)
[2023-05-27 08:47] VITALS: BMI 29.4
[2023-05-27] MEDS ORDERED: ACETAMINOPHEN 500 MG TABLET (FP) PO ONE (08:54)
[2023-05-27] MEDS ORDERED: ACETAMINOPHEN 500 MG TABLET (FP) ONE (08:55)
[2023-05-27 10:31] VITALS: BP 112/78; PULSE 92; RESP 16; TEMP 99.9
== END 2023-05-27 10:41 | disposition home or self-care (01) ==
LOC: FER 08:40
DX: R50.9 Fever, unspecified (principal); R05.9 Cough, unspecified; M79.10 Myalgia, unspecified site; B34.9 Viral infection, unspecified; U07.1 COVID-19
CPT/HCPCS: 0241U-QW; 99283-25

== ENCOUNTER 2023-07-26 11:55 | Emergency (ER) | payer BC ==
[2023-07-26 12:28] VITALS: BP 115/75; PULSE 83; RESP 18; TEMP 98.1; BMI 29.0
[2023-07-26] MEDS ORDERED: ACETAMINOPHEN 500 MG TABLET (FP) PO ONE (12:29)
[2023-07-26] MEDS ORDERED: METHOCARBAMOL 500 MG TABLET PO ONE (12:29)
[2023-07-26] MEDS ORDERED: ACETAMINOPHEN 500 MG TABLET (FP) ONE (12:36)
[2023-07-26] MEDS ORDERED: METHOCARBAMOL 500 MG TABLET ONE (12:36)
== END 2023-07-26 13:48 | disposition home or self-care (01) ==
LOC: FER 11:55
DX: M25.562 Pain in left knee (principal); M25.462 Effusion, left knee
CPT/HCPCS: 73562-TC-LT-FY; 73590-TC-LT-FY; 99283-25

== ENCOUNTER 2023-09-07 07:31 | Emergency (ER) | payer BC ==
[2023-09-07 07:39] VITALS: BP 124/82; PULSE 73; RESP 18; TEMP 97.8; BMI 29.0
[2023-09-07] MEDS ORDERED: KETOROLAC TROMETHAMINE 30 MG/1 ML VIAL ONE (07:43)
[2023-09-07] MEDS ORDERED: diazePAM 5 MG TABLET ONE (07:44)
[2023-09-07] MEDS: KETOROLAC TROMETHAMINE 30 MG/1 ML VIAL IM ONE (07:47)
[2023-09-07] MEDS: diazePAM 5 MG TABLET PO ONE (07:47)
== END 2023-09-07 08:33 | disposition home or self-care (01) ==
LOC: FER 07:31
PROC: 3E0233Z Introduction of Anti-inflammatory into Muscle, Percutaneous Approach (ICD-10-PCS; principal; 2023-09-07)
DX: S39.012A Strain of muscle, fascia and tendon of lower back, initial encounter (principal); M54.50 Low back pain, unspecified
CPT/HCPCS: 99284-25

== ENCOUNTER 2024-04-16 13:00 | Emergency (ER) | payer OTHER, BC ==
[2024-04-16] MEDS ORDERED: FAMOTIDINE 20 MG TABLET ONE (13:48)
[2024-04-16] MEDS ORDERED: diphenhydrAMINE HCL 25 MG CAPSULE (FP) PO ONE (13:48)
[2024-04-16] MEDS ORDERED: DEXAMETHASONE SOD PHOSPHATE 10 MG/1 ML VIAL ONE (13:49)
[2024-04-16] MEDS: FAMOTIDINE 20 MG TABLET PO ONE (14:01)
[2024-04-16] MEDS: DEXAMETHASONE SOD PHOSPHATE 10 MG/1 ML VIAL IM ONE (14:01)
[2024-04-16] MEDS: diphenhydrAMINE HCL 25 MG CAPSULE (FP) PO ONE (14:01)
[2024-04-16 14:46] VITALS: BP 110/77; PULSE 80; RESP 16; TEMP 97.3; BMI 28.3
== END 2024-04-16 14:48 | disposition home or self-care (01) ==
LOC: FER 13:00
PROC: 3E023GC Introduction of Other Therapeutic Substance into Muscle, Percutaneous Approach (ICD-10-PCS; principal; 2024-04-16)
DX: R21 Rash and other nonspecific skin eruption (principal); T78.1XXA Other adverse food reactions, not elsewhere classified, initial encounter
CPT/HCPCS: 99284-25; J1100

== ENCOUNTER 2024-05-21 19:56 | Day surgery (SDC) | payer BC, OTHER ==
[2024-05-21 20:01] VITALS: BMI 28.5
[2024-05-21] MEDS ORDERED: morphine SULFATE 4 MG/ML VIAL ONE ×2 (20:36→23:18)
[2024-05-21] MEDS: morphine CARPU-JECT 4 MG/1 ML DISP.SYRIN IVPUSH ONE ×2 (20:40→23:24)
[2024-05-21 20:41] LABS: HEMOGLOBIN 12.8 G/dL (10.7-15.3); MCH 31.4 pg (25.7-33.7); MCHC 32.8 g/dl (32.0-36.0); MEAN CELL VOLUME 95.9 fl (80-96); MEAN PLT VOLUME 7.9 fl (7.5-11.1); PLATELET COUNT 213.9 10^3/uL (134-434); RBC 4.07 10^6/uL (3.60-5.2); RDW 13.1 % (11.6-15.6); WHITE BLOOD COUNT 10.6 10^3/uL (4.0-10.8)
[2024-05-21 21:02] LABS: ALBUMIN 4.2 g/dl (3.4-5.0); BILIRUBIN,TOTAL 0.8 mg/dl (0.2-1); CREATININE 0.8 mg/dl (0.6-1.3); POTASSIUM 3.9 mmol/L (3.5-5.1); TOT PROT 6.7 g/dl (6.4-8.2)
[2024-05-21] MEDS ORDERED: PIPERACILLIN/TAZOBACTAM 4.5 GM VIAL IVPB ONE (23:01)
[2024-05-21 23:21] LABS: INR 1.03 (0.83-1.09); PROTHROMBIN TIME (PATIENT) 11.7 SEC (9.7-13.0)
[2024-05-21 23:24] LABS: ACTIVATED PTT 34.3 SECONDS (25.2-36.5)
[2024-05-21] MEDS: PIPERACILLIN/TAZOB 4.5 GM 4.5 GM in DEXTROSE 5%-WATER 100 ML IVPB ONE (23:24)
[2024-05-22] MEDS: SODIUM CHLORIDE 1,000 ML IV SCH ×3 (00:51→22:49)
[2024-05-22] MEDS ORDERED: morphine SULFATE 4 MG/ML VIAL ONE (03:07)
[2024-05-22] MEDS: morphine CARPU-JECT 4 MG/1 ML DISP.SYRIN IVPUSH ONE (03:22)
[2024-05-22] MEDS: morphine SULFATE 4 MG/ML VIAL IVPUSH PRN (05:40)
[2024-05-22 08:59] LABS: HEMATOCRIT 35.8 % (32.4-45.2); HEMOGLOBIN 11.8 GM/dL (10.7-15.3); MCH 30.8 pg (25.7-33.7); MCHC 33.1 g/dl (32.0-36.0); MEAN CELL VOLUME 93.3 fl (80-96); PLATELET COUNT 221 10^3/uL (134-434); RBC 3.84 M/mm3 (3.60-5.2); RDW 12.7 % (11.6-15.6); WHITE BLOOD COUNT 9.9 K/mm3 (4.0-10.0)
[2024-05-22 09:24] LABS: POTASSIUM 3.9 mmol/L (3.5-5.1)
[2024-05-22 09:31] LABS: ALBUMIN 3.4 g/dl (3.4-5.0)
[2024-05-22 09:34] LABS: CALCIUM 8.2 mg/dL (8.5-10.1); CREATININE 0.8 mg/dL (0.55-1.3); PHOSPHOROUS 4.3 mg/dL (2.5-4.9)
[2024-05-22 09:35] LABS: BILIRUBIN,TOTAL 1.1 mg/dL (0.2-1); MAGNESIUM 2.1 mg/dL (1.8-2.4); TOT PROT 6.2 g/dl (6.4-8.2)
[2024-05-22] MEDS ORDERED: ENOXAPARIN NA (PORCINE) 40 MG/0.4 ML DISP.SYRIN SQ SCH (10:00)
[2024-05-22] MEDS ORDERED: BUPIVACAINE HCL/PF 0.5% (5MG/ML) 10 ML VIAL ONE (12:44)
[2024-05-22] MEDS ORDERED: ONDANSETRON 4 MG/2 ML VIAL ONE (13:27)
[2024-05-22] MEDS ORDERED: PROPOFOL 20 ML ONE (13:27)
[2024-05-22] MEDS ORDERED: DEXAMETHASONE SOD PHOSPHATE 4 MG/1 ML VIAL ONE (13:27)
[2024-05-22] MEDS ORDERED: MIDAZOLAM HCL 2 MG/2 ML SINGLE DOSE VIAL ONE (13:27)
[2024-05-22] MEDS ORDERED: ROCURONIUM BROMIDE 50 MG/5 ML SYRINGE ONE (13:27)
[2024-05-22] MEDS ORDERED: cefOXitin SODIUM 2 GM VIAL (RESTRICTED TO ID) IVPB ONE (13:54)
[2024-05-22] MEDS: cefOXitin SODIUM 2 GM VIAL (RESTRICTED TO ID) IVPB ONE (13:57)
[2024-05-22] MEDS: BUPIVACAINE HCL/PF 0.5% (5MG/ML) 10 ML VIAL IJ ONE (13:57)
[2024-05-22] MEDS ORDERED: SUGAMMADEX SODIUM 200 MG/2 ML VIAL ONE (14:27)
[2024-05-22] MEDS ORDERED: ONDANSETRON 4 MG/2 ML VIAL IVPUSH PRN ×2 (14:57→15:08)
[2024-05-22] MEDS ORDERED: LACTATED RINGERS SOLUTION 1,000 ML IV SCH ×2 (15:00→15:08)
[2024-05-22] MEDS: ACETAMINOPHEN 1000 MG/100 ML BAG IVPB SCH (15:10)
[2024-05-22 17:14] VITALS: RESP 18
[2024-05-22] MEDS ORDERED: KETOROLAC TROMETHAMINE 30 MG/1 ML VIAL IM PRN (21:00)
[2024-05-23] MEDS: KETOROLAC TROMETHAMINE 30 MG/1 ML VIAL IVPUSH PRN (00:38)
[2024-05-23 09:03] VITALS: BP 106/69; PULSE 82; TEMP 98.3
[2024-05-23] MEDS: ACETAMINOPHEN 1000 MG/100 ML BAG IVPB ONE (10:01)
[2024-05-23 10:15] LABS: HEMATOCRIT 35.2 % (32.4-45.2); MCH 31.6 pg (25.7-33.7); MCHC 34.2 g/dl (32.0-36.0); MEAN CELL VOLUME 92.6 fl (80-96); MEAN PLT VOLUME 7.9 fl (7.5-11.1); PLATELET COUNT 239 10^3/uL (134-434); RDW 12.9 % (11.6-15.6); WHITE BLOOD COUNT 10.6 K/mm3 (4.0-10.0)
[2024-05-23 10:32] LABS: POTASSIUM 4.1 mmol/L (3.5-5.1)
[2024-05-23 10:39] LABS: BLOOD UREA NITROGEN 12.1 mg/dL (7-18); MAGNESIUM 2.2 mg/dL (1.8-2.4)
[2024-05-23 10:42] LABS: CREATININE 0.9 mg/dL (0.55-1.3); PHOSPHOROUS 3.3 mg/dL (2.5-4.9)
== END 2024-05-23 12:32 | disposition home or self-care (01) ==
LOC: FER 19:56 → J6S 05-22 04:00 → UNDOADMIN 05-22 04:00 → FER 05-22 04:07 → JASUSAT 05-22 14:03 → J6S 05-22 14:13 → JASUSAT 05-23 12:32
PROVIDERS: ATTEND Internal Medicine
PROC: 0DTJ4ZZ Resection of Appendix, Percutaneous Endoscopic Approach (ICD-10-PCS; principal; 2024-05-22 13:30)
DX: K35.80 Unspecified acute appendicitis (principal)
CPT/HCPCS: 36415; 71045-TC-FY; 74177-TC; 80048; 80053; 81003; 81015; 83605; 83690; 83735; 84100; 84703; 85027; 85610; 85730; 86850; 86900; 86901; 87086; 88304-TC; 93005; 93010; 94760; 99285-25; J0131; Q9967

== ENCOUNTER 2024-06-05 15:36 | Emergency (ER) | payer BC ==
[2024-06-05 15:54] VITALS: BP 123/79; PULSE 83; RESP 18; TEMP 98.4; BMI 28.5
[2024-06-05] MEDS ORDERED: ACETAMINOPHEN 325 MG TABLET (FP) ONE (15:54)
[2024-06-05] MEDS: ACETAMINOPHEN 325 MG TABLET (FP) PO ONE (16:05)
[2024-06-05 16:23] LABS: MCH 31.9 pg (25.7-33.7); MCHC 34.3 g/dl (32.0-36.0); MEAN PLT VOLUME 7.7 fl (7.5-11.1); PLATELET COUNT 315.7 10^3/uL (134-434); RBC 4.09 10^6/uL (3.60-5.2); RDW 13.2 % (11.6-15.6); WHITE BLOOD COUNT 8.3 10^3/uL (4.0-10.8)
[2024-06-05 16:33] LABS: ALBUMIN 4.4 g/dl (3.4-5.0); ALK PHOS 53 U/L (45-117); ANION GAP 7 mmol/L (4-13); BILIRUBIN,TOTAL 0.5 mg/dl (0.2-1); CALCIUM 9.8 mg/dl (8.5-10.1); CHLORIDE 104 mmol/L (98-107); CO2 28 mmol/L (21-32); CREATININE 0.7 mg/dl (0.6-1.3); GLUCOSE,RANDOM 92 mg/dl (74-106); MAGNESIUM 1.9 mg/dL (1.8-2.4); POTASSIUM 4.3 mmol/L (3.5-5.1); SGOT/AST 14 U/L (15-37); SGPT/ALT 18 U/L (7-52); SODIUM 139 mmol/L (136-145)
[2024-06-05 16:49] LABS: HCG,QUALITATIVE URINE Negative
[2024-06-05] MEDS ORDERED: morphine SULFATE 4 MG/ML VIAL ONE ×2 (17:00→18:59)
[2024-06-05] MEDS: morphine CARPU-JECT 4 MG/1 ML DISP.SYRIN IVPUSH ONE ×2 (17:09→19:05)
[2024-06-05 17:10] LABS: PLATELET ESTIMATE ADEQUATE
== END 2024-06-05 19:51 | disposition home or self-care (01) ==
LOC: FER 15:36
PROC: 3E033NZ Introduction of Analgesics, Hypnotics, Sedatives into Peripheral Vein, Percutaneous Approach (ICD-10-PCS; principal; 2024-06-05)
PROC: 3E033NZ Introduction of Analgesics, Hypnotics, Sedatives into Peripheral Vein, Percutaneous Approach (ICD-10-PCS; 2024-06-05)
DX: K59.00 Constipation, unspecified (principal); R10.33 Periumbilical pain
CPT/HCPCS: 36415; 74177-TC; 80053; 81003; 83735; 84703; 85027; 86850; 86900; 86901; 87086; 99285-25; Q9967